=== PATIENT | male | born 1975 | race African-American/Black ===

== ENCOUNTER 2016-11-18 20:44 | Emergency (ER) | payer OTHER ==
[~2016-11-18] VITALS: Ht 175.3 cm; Wt 90.5 kg
[2016-11-18] MEDS ORDERED: LISINOPRIL20 MG PO (22:20)
[2016-11-18] MEDS ORDERED: LIPITOR20 MG PO (22:20)
[2016-11-18 22:50] VITALS: BP 174/104
== END 2016-11-18 22:58 | disposition home or self-care (01) ==
LOC: EME 20:44
DX: Z76.0 Encounter for issue of repeat prescription (principal); I10 Essential (primary) hypertension; E78.00 Pure hypercholesterolemia, unspecified
CPT/HCPCS: 99281; 99284